=== PATIENT | female | born 2000 | race Caucasian/White ===

== ENCOUNTER → 2021-01-13 | Outpatient (REF) | LOC: M EMP 13:02 | PROVIDERS: ATTEND Family Medicine | DX: Z11.52 Encounter for screening for COVID-19 (principal) ==

== ENCOUNTER → 2021-01-17 | Outpatient (REF) | LOC: M LABSMTC 11:31 | PROVIDERS: ATTEND Pediatrics | DX: Z11.52 Encounter for screening for COVID-19 (principal) ==

== ENCOUNTER 2021-02-06 09:18 | Inpatient (IN) | payer BC ==
[~2021-02-06] VITALS: Ht 167.6 cm; Wt 45.5 kg
--- OUTSIDE RECORDS SUMMARY | 2021-02-06 09:25 | CCD ---
Author Author [facility] Address Unknown Phone Unavailable Care Team Providers Care Lion Trainer Name Role Phone VENEGAS, RUBENS ROSALIND RPA-C Unavailable Unavailable VENEGAS, RUBENS ROSALIND RPA-C Unavailable Unavailable VENEGAS, RUBENS ROSALIND RPA-C Unavailable Unavailable VENEGAS, RUBENS ROSALIND RPA-C Unavailable Unavailable VENEGAS, RUBENS ROSALIND RPA-C Unavailable Unavailable VENEGAS, RUBENS ROSALIND RPA-C Unavailable Unavailable VENEGAS, RUBENS ROSALIND RPA-C Unavailable Unavailable VENEGAS, RUBENS ROSALIND RPA-C Unavailable Unavailable VENEGAS, RUBENS ROSALIND RPA-C Unavailable Unavailable VENEGAS, RUBENS ROSALIND RPA-C Unavailable Unavailable VENEGAS, RUBENS ROSALIND RPA-C Unavailable Unavailable VENEGAS, RUBENS ROSALIND RPA-C Unavailable Unavailable VENEGAS, RUBENS ROSALIND RPA-C Unavailable Unavailable VENEGAS, RUBENS ROSALIND RPA-C Unavailable Unavailable VENEGAS, RUBENS ROSALIND RPA-C Unavailable Unavailable VENEGAS, RUBENS ROSALIND RPA-C Unavailable Unavailable VENEGAS, RUBENS ROSALIND RPA-C Unavailable Unavailable VENEGAS, RUBENS ROSALIND RPA-C Unavailable Unavailable VENEGAS, RUBENS ROSALIND RPA-C Unavailable Unavailable VENEGAS, RUBENS ROSALIND RPA-C Unavailable Unavailable VENEGAS, RUBENS ROSALIND RPA-C Unavailable Unavailable VENEGAS, RUBENS ROSALIND RPA-C Unavailable Unavailable VENEGAS, URBENS ROSALIND RPA-C Unavailable Unavailable VENEGAS, RUBENS ROSALIND RPA-C Unavailable Unavailable VENEGAS, RUBENS ROSALIND RPA-C Unavailable Unavailable VENEGAS, RUBENS ROSALIND RPA-C Unavailable Unavailable VENEGAS, RUBENS ROSALIND RPA-C Unavailable Unavailable VENEGAS, RUBENS ROSALIND RPA-C Unavailable Unavailable VENEGAS, RUBENS ROSALIND RPA-C Unavailable Unavailable VENEGAS, RUBENS ROSALIND RPA-C Unavailable Unavailable VENEGAS, RUBENS ROSALIND RPA-C Unavailable Unavailable VENEGAS, RUBENS ROSALIND RPA-C Unavailable Unavailable VENEGAS, RUBENS ROSALIND RPA-C Unavailable Unavailable VENEGAS, RUBENS ROSALIND RPA-C Unavailable Unavailable VENEGAS, RUBENS ROSALIND RPA-C Unavailable Unavailable VENEGAS, RUBENS ROSALIND RPA-C Unavailable Unavailable VENEGAS, RUBENS ROSALIND RPA-C Unavailable Unavailable VENEGAS, RUBENS ROSALIND RPA-C Unavailable Unavailable VENEGAS, RUBENS ROSALIND RPA-C Unavailable Unavailable VENEGAS, RUBENS ROSALIND RPA-C Unavailable Unavailable VENEGAS, RUBENS ROSALIND RPA-C Unavailable Unavailable VENEGAS, RUBENS ROSALIND RPA-C Unavailable Unavailable VENEGAS, RUBENS ROSALIND RPA-C Unavailable Unavailable PICKERAL JR, J TRICIA PA-C Unavailable Unavailable PICKERAL JR, J TRICIA PA-C Unavailable Unavailable PICKERAL JR, J TRICIA PA-C Unavailable Unavailable PICKERAL JR, J TRICIA PA-C Unavailable Unavailable PICKERAL JR, J TRICIA PA-C Unavailable Unavailable PICKERAL JR, J TRICIA PA-C Unavailable Unavailable PICKERAL JR, J TRICIA PA-C Unavailable Unavailable PICKERAL JR, J TRICIA PA-C Unavailable Unavailable PICKERAL JR, J TRICIA PA-C Unavailable Unavailable PICKERAL JR, J TRICIA PA-C Unavailable Unavailable PICKERAL JR, J TRICIA PA-C Unavailable Unavailable PICKERAL JR, J TRICIA PA-C Unavailable Unavailable PICKERAL JR, J TRICIA PA-C Unavailable Unavailable PICKERAL JR, J TRICIA PA-C Unavailable Unavailable PICKERAL JR, J TRICIA PA-C Unavailable Unavailable PICKERAL JR, J TRICIA PA-C Unavailable Unavailable PICKERAL JR, J TRICIA PA-C Unavailable Unavailable PICKERAL JR, J TRICIA PA-C Unavailable Unavailable PICKERAL JR, J TRICIA PA-C Unavailable Unavailable PICKERAL JR, J TRICIA PA-C Unavailable Unavailable PICKERAL JR, J TRICIA PA-C Unavailable Unavailable PICKERAL JR, J TRICIA PA-C Unavailable Unavailable PICKERAL JR, J TRICIA PA-C Unavailable Unavailable PICKERAL JR, J TRICIA PA-C Unavailable Unavailable PICKERAL JR, J TRICIA PA-C Unavailable Unavailable PICKERAL JR, J TRICIA PA-C Unavailable Unavailable PICKERAL Tarik MARTEL TRICIA PA-C Unavailable Unavailable CARLITO, J Margaret ANP Unavailable Unavailable CARLITO, J Margaret ANP Unavailable Unavailable CARLITO, J Margaret ANP Unavailable Unavailable CARLITO, J Margaret ANP Unavailable Unavailable CARLITO, J Margaret ANP Unavailable Unavailable CARLITO, J Margaret ANP Unavailable Unavailable CARLITO, J Margaret ANP Unavailable Unavailable CARLITO, J Margaret ANP Unavailable Unavailable CARLITO, J Margaret ANP Unavailable Unavailable CARLITO, J Margaret ANP Unavailable Unavailable CARLITO, J Margaret ANP Unavailable Unavailable CARLITO, J Margaret ANP Unavailable Unavailable CARLITO, J Margaret ANP Unavailable Unavailable CARLITO, J Margaret ANP Unavailable Unavailable CARLITO, J Margaret ANP Unavailable Unavailable CARLITO, J Margaret ANP Unavailable Unavailable CARLITO, J Margaret ANP Unavailable Unavailable CARLITO, J Margaret ANP Unavailable Unavailable CARLITO, J Margaret ANP Unavailable Unavailable CARLITO, J Margaret ANP Unavailable Unavailable CARLITO, J Margaret ANP Unavailable Unavailable CARLITO, J Margaret ANP Unavailable Unavailable CARLITO, J Margaret ANP Unavailable Unavailable CARLITO, J Margaret ANP Unavailable Unavailable CARLITO, J Margaret ANP Unavailable Unavailable CARLITO, J Margaret ANP Unavailable Unavailable CARLITO, J Margaret ANP Unavailable Unavailable CARLITO, J Margaret ANP Unavailable Unavailable CARLITO, J Margaret ANP Unavailable Unavailable CARLITO, J Margaret ANP Unavailable Unavailable CARLITO, J Margaret ANP Unavailable Unavailable CARLITO, J Margaret ANP Unavailable Unavailable CARLITO, J Margaret ANP Unavailable Unavailable CARLITO, J Margaret ANP Unavailable Unavailable CARLITO, J Margaret ANP Unavailable Unavailable CARLITO, J Margaret ANP Unavailable Unavailable CARLITO, J Margaret ANP Unavailable Unavailable CARLITO, J Margaret ANP Unavailable Unavailable CARLITO, J Margaret ANP Unavailable Unavailable CARLITO, J Margaret ANP Unavailable Unavailable CARLITO, J Margaret ANP Unavailable Unavailable CARLITO, J Margaret ANP Unavailable Unavailable CARLITO, J Margaret ANP Unavailable Unavailable CARLITO, J Margaret ANP Unavailable Unavailable CARLITO, J Margaret ANP Unavailable Unavailable CARLITO, J Margaret ANP Unavailable Unavailable CARLITO, J Margaret ANP Unavailable Unavailable CARLITO, J Maragret ANP Unavailable Unavailable CARLITO, J Margaret ANP Unavailable Unavailable CARLITO, J Margaret ANP Unavailable Unavailable CARLITO, J Margaret ANP Unavailable Unavailable CARLITO, J Margaret ANP Unavailable Unavailable CARLITO, J Margaret ANP Unavailable Unavailable CARLITO, J Margaret ANP Unavailable Unavailable CARLITO, J Margaret ANP Unavailable Unavailable CARLITO, J Margaret ANP Unavailable Unavailable CARLITO, J Margaret ANP Unavailable Unavailable CARLITO, J Margaret ANP Unavailable Unavailable CARLITO, J Margaret ANP Unavailable Unavailable CARLITO, J Margaret ANP Unavailable Unavailable CARLITO, J Margaret ANP Unavailable Unavailable CARLITO, J Margaret ANP Unavailable Unavailable CARLITO, J Margaret ANP Unavailable Unavailable CARLITO, J Margaret ANP Unavailable Unavailable Re-disclosure Warning The records that you are about to access may contain information from federally-assisted alcohol or drug abuse programs. If such information is present, then the following federally mandated warning applies: This information has been disclosed to you from records protected by federal confidentiality rules (42 CFR part 2). The federal rules prohibit you from making any further disclosure of this information unless further disclosure is expressly permitted by the written consent of the person to whom it pertains or as otherwise permitted by 42 CFR part 2. A general authorization for the release of medical or other information is NOT sufficient for this purpose. The Federal rules restrict any use of the information to criminally investigate or prosecute any alcohol or drug abuse patient.The records that you are about to access may contain highly sensitive health information, the redisclosure of which is protected by Article 27-F of the [facility] Public Health law. If you continue you may have access to information: Regarding HIV / AIDS; Provided by facilities licensed or operated by the [facility] Office of Mental Health; or Provided by the [facility] Office for People With Developmental Disabilities. If such information is present, then the following [facility] mandated warning applies: This information has been disclosed to you from confidential records which are protected by state law. State law prohibits you from making any further disclosure of this information without the specific written consent of the person to whom it pertains, or as otherwise permitted by law. Any unauthorized further disclosure in violation of state law may result in a fine or half-way sentence or both. A general authorization for the release of medical or other information is NOT sufficient authorization for further disc losure. Family History Family Member Name Family Member Gender Family Member Status Date o f Status Description Data Source(s) Unknown Unknown Problem [facility] ([facility]) father Unknown Unknown Problem MEDENT ([employer]PER[employer]) Unknown Unknown Problem [facility] ([facility]) Unknown Male Problem [facility] ([facility]) Encounters Encounter Providers Location Date Indications Data Source(s ) PRECIOUS [place]: [address], [place] [address], Ph. Attender: ROSALIND LANG [facility] Medical 01/13/2021 12:00:00 AM EDT [facility] ([facility]) Outpatient Attender: Margaret Odom 03/2020 07:30:00 AM EST MEDENT ([facility] ) Outpatient Attender: TRICIA Odom 1 04/15/2019 10:20:00 AM EST MED[facility] ([facility] ) Immunizations Vaccine Date Status Description Data Source(s) influenza, intradermal, quadrivalent, preservative dae e 01/06/2021 12:00:00 AM EDT completed 01/06/2021 [facility] ([facility]) COVID-19, mRNA, LNP-S, PF, 100 mcg/0.5 mL dose 09/02/2020 12 :00:00 AM EDT completed 09/02/2020 [facility] ([facility]) COVID-19 VACCINE Moderna 09/02/2020 12:00:00 AM EDT completed [facility] Vaccine Series Complete: YESThis Data wa s Submitted to [facility] [employer]. COVID-19, mRNA, LNP-S, PF, 100 mcg/0.5 mL dose 08/05/2020 12 :00:00 AM EDT completed 08/05/2020 [facility] ([facility]) COVID-19 VACCINE Moderna 08/05/2020 12:00:00 AM EDT completed [facility] Vaccine Series Complete: NOThis Data was Submitted to [facility] [employer]. Medications Medication Brand Name Start Date Product Form Dose Route Admi nistrative Instructions Pharmacy Instructions Status Indications Reaction Description Data Source(s) 24 HR Bupropion Hydrochloride 150 MG Extended Release Oral Tablet [Wellbutrin] Wellbutrin XL 02/14/2020 12:00:00 AM EST ORAL active MEDENT ([facility]) Escitalopram 5 MG Oral Tablet ESCITALOPRAM OXALATE 01/05/2020 12 :00:00 AM EDT tablet 30 TAKE ONE TABLET BY MOUTH EVERY D AY TAKE ONE TABLET BY MOUTH EVERY DAY SOLD: 01/07/2020 David Osbaldo s Escitalopram 5 MG Oral Tablet escitalopr am 5 mg tablet TAKE 1 TABLET BY MOUTH EVERY DAY escitalopram 5 mg tablet TAKE 1 TABLET BY MOUTH EVERY DAY completed escitalopram 5 MG Oral Tablet [facility] ([facility]) 24 HR Bupropion Hydrochloride 150 MG Ext ended Release Oral Tablet bupropion HCl XL 150 mg 24 hr tablet, extended release TAKE 1 TABLET BY MOUTH EVERY DAY bupropion HCl XL 150 mg 24 hr tablet, extended release TAKE 1 TABLET BY MOUTH EVERY DAY completed 24 H R bupropion hydrochloride 150 MG Extended Release Oral Tablet ARTEMIO ([facility]) Insurance Providers Payer name Policy type / Coverage type Policy ID Covered constitution party ID Covered constitution party's relationship to aleman Policy Aleman Plan Information BC/BS [facility] Health Maintenance Organization ([facility]) [id number] Family Dependent [id number] BC/BS [facility] Health Maintenance Organization (O) [facility] [id number] Family Dependent [facility] Medicaid Medicaid [id number] Family Dependent [id number] Medicaid Medicaid [id number] Family Dependent [id number] Medicaid Medicaid [id number] Family Dependent [id number] Medicaid Medicaid [facility] Medicaid [id number] Family Dependent [facility] Medicaid Medicaid Medicaid [id number] Family Dependent [id number] Medicaid Medicaid [id number] Family Dependent [id number] Medicaid Medicaid [id number] Family Dependent [id number] Medicaid Medicaid [id number] [id number] Family Dependent [id number] [facility] [id number] Family Dependent [id number] [facility] [id number] Family Dependent [id number] [facility] [id number] Family Dependent [facility] [id number] Family Dependent [id number] [facility] [id number] Family Dependent [id number] [facility] [id number] Family Dependent [id number] [facility] [id number] Family Dependent [id number] [facility] [id number] Family Dependent [id number] [facility] Health Maintenance Organization ([facility]) [id number] Family Dependent [id number] [facility] Health Maintenance Organization (HMO) [facility] [id number] Family Dependent [employer] Hmo Blue Child [facility] Health Maintenance Organization (HMO) Z [id number] Family Dependent [id number] Hmo Blue Child [facility] Plus Health Maintenance Organization (HMO) [id number] Family Dependent Hmo Blue Child [facility] Health Maintenance Organization (HMO) V [id number] Family Dependent [id number] Hmo Blue Child [facility] Health Maintenance Organization (HMO) V [id number] Family Dependent [id number] Hmo Blue Child [facility] Health Maintenance Organization (HMO) V [id number] Family Dependent [id number] Hmo Blue Child [facility] Plus Health Maintenance Organization (HMO) V [id number] Family Dependent [id number] Hmo Blue Child [facility] Plus Health Maintenance Organization (HMO) V [id number] Family Dependent [id number] Hmo Blue Child [facility] Plus Health Maintenance Organization (HMO) V [id number] Family Dependent [id number] Hmo Blue Child [facility]TH Plus Health Maintenance Organization (HMO) V [id number] Family Dependent [id number] Hmo Blue Child [facility]TH Plus Health Maintenance Organization (HMO) H mo Blue CHP [id number] Family Dependent o Blue CHP Child HLTH Plus Exchange Health Maintenance Organization (HMO) V [id number] Child HLTH Plus [employer] Health Maintenance Organization (HMO) V [id number] Child HLTH Plus [employer] Health Maintenance Organization (HMO) V [id number] BS Cassandra [employer] [id number] Family Dependent [id number] D [facility] [address] [employer] [place] Commercial [id number] Family Dependent [id number] BCBS/Blue Card Commercial [id number] Family Dependent [id number] [employer] BCBS B [id number] S VYB HMO BLUE [id number] SP [id number] SELF PAY ONLY [id number] SP [id number] BCBS [place] PPO 302/307 [id number] [id number] BCBS/Blue Card Commercial [id number] Family Dependent [id number] [facility] [id number] Family Dependent [id number] Problems, Conditions, and Diagnoses Code Display Name Description Problem Type Effective Dates Data Source(s) [id number] History of depression History of Depression Problem 01/13/2021 12:00:00 AM EDT [facility] ([facility]) [id number] Anxiety Anxiety Problem 01/13/2021 12:00:00 AM ED T [facility] ([facility]) Surgeries/Procedures No Information Results ID Date Data Source [id number] 01/17/2021 11:00:00 AM EDT [facility] Name Value Range Interpretation Code Description Data Sosa rce(s) Supporting Document(s) SARS coronavirus 2 RNA [Presence] in Res piratory specimen by NADEEM with probe detection NEGATIVE [facility] This lab was ordered by [facility] a nd reported by [facility]. ID Date Data Source [id number] 01/13/2021 01:03:00 PM EDT [facility] Name Value Range Interpretation Code Description Data Sosa rce(s) Supporting Document(s) SARS coronavirus 2 RNA [Presence] in Res piratory specimen by NADEEM with probe detection NEGATIVE [facility] This lab was ordered by [facility] a nd reported by [facility]. ID Date Data Source [id number] 01/13/2021 12:49:00 PM EDT [facility] ([facility]) Name Value Range Interpretation Code Description Data Sosa rce(s) Supporting Document(s) sars-cov-2 negative negative Sars-cov-2 [facility]) ID Date Data Source [id number] 01/13/2021 12:48:00 PM EDT [facility] [place] [facility] ([facility]) Name Value Range Interpretation Code Description Data Sosa rce(s) Supporting Document(s) Strep negative Strep ARTEMIO ([facility]) ID Date Data Source [id number] 01/13/2021 12:38:00 PM EDT [facility]IO ([facility]) Name Value Range Interpretation Code Description Data Sosa rce(s) Supporting Document(s) Bacteria identified in Throat by Culture see note Culture, Throat [facility]IO ([facility]) ID Date Data Source [id number] 01/13/2021 11:44:00 AM EDT [facility] Name Value Range Interpretation Code Description Data Sosa rce(s) Supporting Document(s) SARS coronavirus 2 RdRp gene [Presence] in Respiratory specimen by NADEEM with probe detection Not detected [facility] This lab was ordered by [facility] and reported by [facility]. ID Date Data Source [id number] 07/27/2020 10:00:00 AM EDT [facility] Name Value Range Interpretation Code Description Data Sosa rce(s) Supporting Document(s) SARS-CoV-2 (COVID-19) RNA [Presence] in Respiratory specimen by NADEEM with probe detection Not Detected [facility] This lab was ordered by [facility] and reported by [employer] [facility] ID Date Data Source [id number] 05/12/2020 12:00:00 PM EST [facility] Name Value Range Interpretation Code Description Data Sosa rce(s) Supporting Document(s) SARS coronavirus 2 RNA Not Detected [facility] This lab was ordered by [facility] and reported by [facility]. ID Date Data Source [id number] 02/28/2020 12:00:00 AM EST [facility] Name Value Range Interpretation Code Description Data Sosa rce(s) Supporting Document(s) 2019-nCoV RNA XXX NADEEM+probe-Imp [facility] This lab was ordered by [facility] and reported by [employer] [facility] Procedure Social History No Information Vital Signs ID Date Data Source UNK Name Value Range Interpretation Code Description Data Source(s) Body height 67 [in_i] 67 [in_i] ARTEMIO ([facility]) Diastolic blood pressure 82 mm[Hg] 82 mm[Hg] [facility] ([facility]) Body weight 1648 [oz_av] 1648 [oz_av] [facility]IO ([facility]) Body mass index (BMI) [Ratio] 16.1 kg/m2 16.1 k g/m2 [facility]IO ([facility]) Systolic blood pressure 123 mm[Hg] 123 mm[Hg] A THENA ([facility]) Heart rate 74 /min 74 /min MEDENT ([facility]) Body height 66.0 [in_i] 66.0 [in_i] MEDENT ([facility]) 5'6" Body weight 116.00 [lb_av] 116.00 [lb_av] MEDEN T ([facility]) Oxygen saturation in Arterial blood by Pulse oximetry 99 % 99 % MEDENT ([facility]) Body mass index (BMI) [Ratio] 18.7 kg/m2 18.7 k g/m2 MEDENT ([facility]) Systolic blood pressure 100 mm[Hg] 100 mm[Hg] M EDENT ([facility]) Diastolic blood pressure 62 mm[Hg] 62 mm[Hg] MEDENT ([facility]) Systolic blood pressure 100 mm[Hg] 100 mm[Hg] M EDENT ([facility]) Body weight 115.00 [lb_av] 115.00 [lb_av] MEDEN T ([facility]) Body mass index (BMI) [Ratio] 18.6 kg/m2 18.6 k g/m2 MEDENT ([facility]) Diastolic blood pressure 58 mm[Hg] 58 mm[Hg] MEDENT ([facility]) Body height 66.0 [in_i] 66.0 [in_i] MEDENT ([facility]) 5'6" Patient Treatment Plan of Care Planned Activity Planned Date Details Description Data Source (s) Escitalopram 5 MG Oral Tablet [facility] ([facility]) 24 HR Bupropion Hydrochloride 150 MG Extended Release Oral Tablet [facility] ([facility])
--- OUTSIDE RECORDS SUMMARY | 2021-02-06 09:25 | CCD ---
Author Organization Unknown Address [address] [place] [address] Phone [phone] Care Team Providers Care Saw Edge Fuser Circular Name Role Phone Beck Gabriel Unavailable Unavailable Allergies Code Code System Name Reaction Severity Status Onset Penicillin Active 06/28/2012 328250 RxNorm Lexapro Other Active Wellbutrin Other Active Medications Name Status Start Date Stop Date bupropion HCl XL 150 mg 24 hr tablet, ex tended release TAKE 1 TABLET BY MOUTH EVERY DAY Completed 2020 cefdinir 300 mg capsule TAKE 1 CAPSULE BY MOUTH EVERY 12 HOURS FOR 7 DAYS Active Not available escitalopram 5 mg tablet TAKE 1 TABLET BY MOUTH EVERY DAY Completed 2020 fluoxetine 20 mg capsule TAKE 1 CAPSULE BY MOUTH EVERY DAY Active Not a vailable hydroxyzine HCl 10 mg tablet TAKE 1 TABLET BY MOUTH THREE TIMES DAILY FOR 10 DAYS NEEDED Active Not available Notes: has IUD Problems Name Status Onset Date Source Anxiety Active 01/13/2021 History of Depression Active 01/13/2021 Procedures None recorded. Results Lab Results Date Name Specimen Result Interpretation Description Value Range Status Address 01/13/2021 Culture, Throat Throat Culture, Throat see not e Final [facility]: [address] 01/13/2021 SARS CoV 2 RdRp Gene, QL Probe, Respirat ory Specimen Nose (nasal passage) Normal Sars-cov-2 negative negative Final [facility] ical: [address], [place] 01/13/2021 Rapid Strep Group a, Throat Throat Strep negat kimber [facility] Medical: [address], [place] Past Encounters 01/13/2021 Mixed Anxiety and Depressive Disorder; Sore Throat Symptom Beck Gabriel RPA-C: [address], [place] [address], Ph. Social History Tobacco Smoking Status Never Smoker Vaccine List Vaccine Type COVID-19, mRNA, LNP-S, PF, 100 mcg/0.5 m L dose 08/05/2020 09/02/2020 influenza, intradermal, quadrivalent, pr eservative free 01/06/2021 Plan of Care Reminders Provider Appointments None recorded. Lab None recorded. Referral None recorded. Procedures None recorded. Surgeries None recorded. Imaging None recorded. Vitals Height Weight BMI Blood Pressure 67 in 102 lbs 16 oz 16.1 kg/m2 123/82 mm[Hg]
[2021-02-06 10:34] LABS: HEMATOCRIT 46.6 % (36.0-47.0); HEMOGLOBIN 15.3 g/dl (12.0-15.5); MEAN CORPUSCULAR HEMOGLOBIN 30.1 pg (27.0-33.0); MEAN CORPUSCULAR HGB CONC 32.8 g/dl (32.0-36.5); MEAN CORPUSCULAR VOLUME 91.6 fl (80.0-96.0); PLATELET COUNT, AUTOMATED 191 10^3/uL (150-450); RED BLOOD COUNT 5.09 10^6/uL (4.00-5.40); WHITE BLOOD COUNT 7.2 10^3/uL (4.0-10.0)
[2021-02-06] MEDS ORDERED: FLUO20CA22 PO (10:34)
[2021-02-06] MEDS ORDERED: HYDR-643 PO (10:34)
[2021-02-06] MEDS ORDERED: FLON1SPR NARES (10:35)
[2021-02-06 10:44] LABS: HCG, SERUM QUALITATIVE NEGATIVE (NEGATIVE)
[2021-02-06 10:56] LABS: AMPHETAMINES LEVEL URINE NEGATIVE (NEGATIVE); BARBITURATES URINE NEGATIVE (NEGATIVE); BENZODIAZEPINES URINE NEGATIVE (NEGATIVE); CANNABINOIDS URINE POSITIVE (NEGATIVE); COCAINE METABOLITE URINE NEGATIVE (NEGATIVE); METHADONE URINE NEGATIVE (NEGATIVE); OPIATES URINE NEGATIVE (NEGATIVE); PHENCYCLIDINE URINE NEGATIVE (NEGATIVE)
[2021-02-06 10:59] LABS: ALT/SGPT 19 U/L (12-78); BLOOD UREA NITROGEN 5 MG/DL (7-18); CALCIUM LEVEL 9.2 MG/DL (8.5-10.1); CARBON DIOXIDE LEVEL 29 MEQ/L (21-32); CHLORIDE LEVEL 102 MEQ/L (98-107); CREATININE FOR GFR 0.56 MG/DL (0.55-1.30); GLOMERULAR FILTRATION RATE > 60.0 (>60); GLUCOSE, FASTING 88 MG/DL (70-100); POTASSIUM SERUM 4.4 MEQ/L (3.5-5.1); SODIUM LEVEL 137 MEQ/L (136-145)
[2021-02-06 11:00] LABS: ACETAMINOPHEN LEVEL < 2.0 UG/ML (10.0-30.0); ALBUMIN 4.4 GM/DL (3.2-5.2); BILIRUBIN,DIRECT 0.2 MG/DL (0.0-0.2); BILIRUBIN,TOTAL 0.4 MG/DL (0.2-1.0); ETHYL ALCOHOL (ETHANOL) < 0.003 % (0.000-0.010); SALICYLATE LEVEL 1.9 MG/DL (5.0-30.0); THYROID STIMULATING HORMONE 0.296 uIU/ML (0.358-3.740); TOTAL PROTEIN 8.2 GM/DL (6.4-8.2)
--- OUTSIDE RECORDS SUMMARY | 2021-02-06 12:09 | CCD ---
Author Author [facility] Address Unknown Phone Unavailable Care Team Providers Care Senior Staff Psychologist Name Role Phone VENEGAS, RUBENS ROSALIND RPA-C [...] J Margaret ANP Unavailable Unavailable CARLITO, J Margarte ANP Unavailable Unavailable CARLITO, J Margaret ANP [...] is protected by Article 27-F of the [facility] Public Health law. If you continue you may have access to information: Regarding HIV / AIDS; Provided by facilities licensed or operated by the [facility] Office of Mental Health; or Provided by the [facility] Office for People With Developmental Disabilities. If such information is present, then the following [facility] mandated warning applies: This information has been [...] law may result in a fine or senior living sentence or both. A general authorization for the release of medical or other information is NOT sufficient authorization for further disc losure. Family History Family Member Name Family Member Gender Family Member Status Date o f Status Description Data Source(s) Unknown Unknown Problem MEDENT ([facility]) father Unknown Unknown Problem MEDENT ([employer]) Unknown Unknown Problem MEDENT ([facility]) Unknown Male Problem [facility] ([facility]) Encounters Encounter Providers Location Date Indications Data Source(s ) PRECIOUS [place]: [address], [place] [address], Ph. Attender: ROSALIND LANG [facility] Medical 01/13/2021 12:00:00 AM EDT [facility] ([facility]) Outpatient Attender: Margaret Odom 03/2020 07:30:00 AM EST MEDENT ([facility] ) Outpatient Attender: TRICIA Odom 1 04/15/2019 10:20:00 AM EST MED[facility] ([facility] ) Immunizations Vaccine Date Status Description Data Source(s) influenza, intradermal, quadrivalent, preservative dae e 01/06/2021 12:00:00 AM EDT completed 01/06/2021 [facility] ([facility]) COVID-19, mRNA, LNP-S, PF, 100 mcg/0.5 mL dose 09/02/2020 12 :00:00 AM EDT completed 09/02/2020 [facility] ([facility]) COVID-19 VACCINE Moderna 09/02/2020 12:00:00 AM EDT completed [facility] Vaccine Series Complete: YESThis Data wa s Submitted to [facility] Via [facility]. COVID-19, mRNA, LNP-S, PF, 100 mcg/0.5 mL dose 08/05/2020 12 :00:00 AM EDT completed 08/05/2020 [facility] ([facility]) COVID-19 VACCINE Moderna 08/05/2020 12:00:00 AM EDT completed [facility] Vaccine Series Complete: NOThis Data was Submitted to [facility]. Medications Medication Brand Name Start Date Product Form Dose Route Admi nistrative Instructions Pharmacy Instructions Status Indications Reaction Description Data Source(s) 24 HR Bupropion Hydrochloride 150 MG Extended Release Oral Tablet [Wellbutrin] Wellbutrin XL 02/14/2020 12:00:00 AM EST ORAL active MEDENT ([facility]) Escitalopram 5 MG Oral Tablet ESCITALOPRAM [...] completed escitalopram 5 MG Oral Tablet AT [facility] ([facility]) 24 HR Bupropion Hydrochloride 150 MG Ext ended Release Oral Tablet bupropion HCl XL 150 mg 24 hr tablet, extended release TAKE 1 TABLET BY MOUTH EVERY DAY bupropion HCl XL 150 mg 24 hr tablet, extended release TAKE 1 TABLET BY MOUTH EVERY DAY completed 24 H R bupropion hydrochloride 150 MG Extended Release Oral Tablet [facility] ([facility]) Insurance Providers Payer name Policy type / Coverage type Policy ID Covered republican ID Covered republican's relationship to aleman Policy Aleman Plan Information BC/BS [facility] Health Maintenance Organization ([facility] [facility]) [id number] Family Dependent [id number] BC/BS [facility] Health Maintenance Organization (O) [facility] Blue [id number] Family Dependent [facility] Medicaid Medicaid [id number] Family Dependent [id number] Medicaid Medicaid [id number] Family Dependent [id number] Medicaid Medicaid [id number] Family Dependent [id number] Medicaid Medicaid [facility] Medicaid [id number] [facility] Medicaid Medicaid Medicaid [id number] Family Dependent [id number] Medicaid Medicaid [id number] [id number] Family Dependent [id number] Medicaid Medicaid [id number] Family Dependent [id number] Medicaid Medicaid [id number] [id number] Family Dependent [id number] [facility] [id number] Family Dependent [id number] [facility] [id number] Family Dependent [id number] [facility] [id number] Family Dependent [facility] [id number] Family Dependent [id number] [facility] [id number] Family Dependent [id number] [facility] [id number] Family Dependent [id number] [facility] [id number] Family Dependent [id number] [facility] [id number] Family Dependent [id number] [facility] Health Maintenance Organization ([facility] [facility]) [id number] Family Dependent [id number] [facility] Health Maintenance Organization (HMO) [facility] [id number] Family Dependent [employer] Hmo Blue Child HLTH Plus Health Maintenance Organization (HMO) [id number] Family Dependent [id number] Hmo Blue Child HLTH Plus Health Maintenance Organization (HMO) [id number] Family Dependent Hmo Blue Child HLTH Plus Health Maintenance Organization (HMO) V [id number] Family Dependent [id number] Hmo Blue Child HLTH Plus Health Maintenance Organization (HMO) V [id number] Family Dependent [id number] Hmo Blue Child HLTH Plus Health Maintenance Organization (HMO) V [id number] Family Dependent [id number] Hmo Blue Child HLTH Plus Health Maintenance Organization (HMO) V [id number] Family Dependent [id number] Hmo Blue Child HLTH Plus Health Maintenance Organization (HMO) V [id number] Family Dependent [id number] Hmo Blue Child HLTH Plus Health Maintenance Organization (HMO) V [id number] Family Dependent [id number] Hmo Blue Child HLTH Plus Health Maintenance Organization (HMO) V [id number] Family Dependent [id number] Hmo Blue Child HLTH Plus Health Maintenance Organization (HMO) H mo Blue CHP [id number] Family Dependent o Blue CHP Child HLTH Plus Exchange Health Maintenance Organization (HMO) V [id number] [id number] Child HLTH Plus [employer] Health Maintenance Organization (HMO) V [id number] Child HLTH Plus Exchange Health Maintenance Organization (HMO) V [id number] BS Cassandra [employer]/MX Commercial [id number] Family Dependent [id number] D [facility] [address] [facility] [place] Commercial [id number] Family Dependent [id number] BCBS/Blue Card Commercial [id number] Family Dependent [id number] EXCELLUS BCBS B [id number] S VYB HMO BLUE [id number] SP [id number] SELF PAY ONLY [id number] SP [id number] BCBS [place]AT[place] PPO 302/307 [id number] [id number] BCBS/Blue Card Commercial [id number] Family Dependent [id number] [facility] [id number] Family Dependent [id number] Problems, Conditions, and Diagnoses Code Display Name Description Problem Type Effective Dates Data Source(s) [id number] History of depression History of Depression Problem 01/13/2021 12:00:00 AM EDT [facility] ([facility]) [id number] Anxiety Anxiety Problem 01/13/2021 12:00:00 AM ED T [facility] ([facility]) Surgeries/Procedures No Information Results ID Date Data Source [id number] 01/17/2021 11:00:00 AM EDT [facility] Name Value Range Interpretation Code Description Data Sosa rce(s) Supporting Document(s) SARS coronavirus 2 RNA [Presence] in Res piratory specimen by NADEEM with probe detection NEGATIVE [facility] This lab was ordered by [facility] a nd reported by [facility]. ID Date Data Source [id number] 01/13/2021 01:03:00 PM EDT [facility] Name Value Range Interpretation Code Description Data Sosa rce(s) Supporting Document(s) SARS coronavirus 2 RNA [Presence] in Res piratory specimen by NADEEM with probe detection NEGATIVE [facility] This lab was ordered by [facility] a nd reported by [facility]. ID Date Data Source [id number] 01/13/2021 12:49:00 PM EDT [facility] ([facility]) Name Value Range Interpretation Code Description Data Sosa rce(s) Supporting Document(s) sars-cov-2 negative negative Sars-cov-2 [facility]) ID Date Data Source [id number] 01/13/2021 12:48:00 PM EDT [facility] ([facility]) Name Value Range Interpretation Code Description Data Sosa rce(s) Supporting Document(s) Strep negative Strep [facility]EMIO ([facility]) ID Date Data Source [id number] 01/13/2021 12:38:00 PM EDT [facility] ([facility]) Name Value Range Interpretation Code Description Data Sosa rce(s) Supporting Document(s) Bacteria identified in Throat by Culture see note Culture, Throat [facility] ([facility]) ID Date Data Source [id number] 01/13/2021 11:44:00 AM EDT [facility] Name Value Range Interpretation Code Description Data Sosa rce(s) Supporting Document(s) SARS coronavirus 2 RdRp gene [Presence] in Respiratory specimen by NADEEM with probe detection Not detected [facility] This lab was ordered by [facility] and reported by [facility]. ID Date Data Source [id number] 07/27/2020 10:00:00 AM EDT [facility] Name Value Range Interpretation Code Description Data Sosa rce(s) Supporting Document(s) SARS-CoV-2 (COVID-19) RNA [Presence] in Respiratory specimen by NADEEM with probe detection Not Detected [facility] This lab was ordered by [facility] and reported by [employer] ID Date Data Source [id number] 05/12/2020 12:00:00 PM EST [facility] Name Value Range Interpretation Code Description Data Sosa rce(s) Supporting Document(s) SARS coronavirus 2 RNA Not Detected [facility] This lab was ordered by [facility] and reported by [facility]. ID Date Data Source [id number] 02/28/2020 12:00:00 AM EST [facility] Name Value Range Interpretation Code Description Data Sosa rce(s) Supporting Document(s) 2019-nCoV RNA XXX NADEEM+probe-Imp [facility] This lab was ordered by [facility] and reported by [employer] Procedure Social History No Information Vital Signs ID Date Data Source UNK Name Value Range Interpretation Code Description Data Source(s) Diastolic blood pressure 82 mm[Hg] 82 mm[Hg] ARTEMIO ([facility]) Body height 67 [in_i] 67 [in_i] [facility] ([facility]) Body mass index (BMI) [Ratio] 16.1 kg/m2 16.1 k g/m2 ART[facility]IO ([facility]) Systolic blood pressure 123 mm[Hg] 123 mm[Hg] Archie THENA ([facility]) Body weight 1648 [oz_av] 1648 [oz_av] ARTEMIO ([facility]) Body height 66.0 [in_i] 66.0 [in_i] MEDENT ([facility]) 5'6" Heart rate 74 /min 74 /min MEDENT ([facility]) Body weight 116.00 [lb_av] 116.00 [lb_av] MEDEN T ([facility]) Oxygen saturation in Arterial blood by Pulse oximetry 99 % 99 % [facility] Body mass index (BMI) [Ratio] 18.7 kg/m2 18.7 k g/m2 MEDENT ([facility]) Systolic blood pressure 100 mm[Hg] 100 mm[Hg] M EDENT ([facility]) Diastolic blood pressure 62 mm[Hg] 62 mm[Hg] MEDENT ([facility]) Systolic blood pressure 100 mm[Hg] 100 mm[Hg] M EDENT ([facility]) Diastolic blood pressure 58 mm[Hg] 58 mm[Hg] MEDENT ([facility]) Body height 66.0 [in_i] 66.0 [in_i] MED[facility] ([facility]) 5'6" Body weight 115.00 [lb_av] 115.00 [lb_av] MEDEN T ([facility]) Body mass index (BMI) [Ratio] 18.6 kg/m2 18.6 k g/m2 MEDENT ([facility]) Patient Treatment Plan of Care Planned Activity Planned Date Details Description Data Source (s) Escitalopram 5 MG Oral Tablet [facility]IO ([facility]) 24 HR Bupropion Hydrochloride 150 MG Extended Release Oral Tablet [facility] ([facility])
[2021-02-06] MEDS ORDERED: MAALOX 30 ML SUSP *UDC PO PRN (13:30)
[2021-02-06] MEDS ORDERED: ACETAMINOPHEN TAB 650MG DOSE (2X325MG) PO PRN (13:30)
[2021-02-06] MEDS ORDERED: MOM 30ML SUSPENSION UDC PO PRN (13:30)
--- OUTSIDE RECORDS SUMMARY | 2021-02-06 13:55 | CCD ---
Author Author [facility] Address Unknown Phone Unavailable Care Team Providers Care General Service Officer Name Role Phone VENEGAS, RUBENS ROSALIND RPA-C [...] is protected by Article 27-F of the [facility] Public Health law. If you continue you may have access to information: Regarding HIV / AIDS; Provided by facilities licensed or operated by the [facility] Office of Mental Health; or Provided by the [facility] Office for People With Developmental Disabilities. If such information is present, then the following [facility] mandated warning applies: This information has [...] father Unknown Unknown Problem [facility] ([facility] [employer]) Unknown Unknown Problem [facility] ([facility]) Unknown Male Problem [facility] ([facility]) Encounters Encounter Providers Location Date Indications Data Source(s ) PRECIOUS [place]: [address], [address], [place] [address], Ph. Attender: ROSALIND LANG [facility] 01/13/2021 12:00:00 AM EDT [place] ([facility]) Outpatient Attender: Margaret Odom 03/2020 07:30:00 AM EST [facility] ([facility] ) Outpatient Attender: TRICIA Odom 1 04/15/2019 10:20:00 AM EST [facility] ([facility] ) Immunizations Vaccine Date Status Description Data Source(s) influenza, intradermal, quadrivalent, preservative ade e 01/06/2021 12:00:00 AM EDT completed 01/06/2021 [place] ([facility]) COVID-19, mRNA, LNP-S, PF, 100 mcg/0.5 mL dose 09/02/2020 12 :00:00 AM EDT completed 09/02/2020 [place] ([facility]) COVID-19 VACCINE Moderna 09/02/2020 12:00:00 AM EDT completed [facility] Vaccine Series Complete: YESThis Data wa s Submitted to [facility] Via [employer]. COVID-19, mRNA, LNP-S, PF, 100 mcg/0.5 mL dose 08/05/2020 12 :00:00 AM EDT completed 08/05/2020 [place] ([facility]) COVID-19 VACCINE Moderna 08/05/2020 12:00:00 AM EDT completed [facility] Vaccine Series Complete: NOThis Data was Submitted to [facility] [employer]. Medications Medication Brand Name Start Date Product Form Dose Route Admi nistrative Instructions Pharmacy Instructions Status Indications Reaction Description Data Source(s) 24 HR Bupropion Hydrochloride 150 MG Extended Release Oral Tablet [Wellbutrin] Wellbutrin XL 02/14/2020 12:00:00 AM EST ORAL active [facility] ([facility]) Escitalopram 5 MG Oral Tablet ESCITALOPRAM [...] completed escitalopram 5 MG Oral Tablet AT [facility] ([facility]) 24 HR Bupropion Hydrochloride 150 MG Ext ended Release Oral Tablet bupropion HCl XL 150 mg 24 hr tablet, extended release TAKE 1 TABLET BY MOUTH EVERY DAY bupropion HCl XL 150 mg 24 hr tablet, extended release TAKE 1 TABLET BY MOUTH EVERY DAY completed 24 H R bupropion hydrochloride 150 MG Extended Release Oral Tablet [facility] ([facility]) Insurance Providers Payer name Policy type / Coverage type Policy ID Covered alliance party ID Covered alliance party's relationship to aleman Policy Aleman Plan Information BC/BS [facility] Health Maintenance Organization ([facility] [id number] Family Dependent [id number] BC/BS [facility] Health Maintenance Organization (O) [facility] Blue [id number] Family Dependent [facility] Medicaid Medicaid [id number] Family Dependent [id number] Medicaid Medicaid [id number] Family Dependent [id number] Medicaid Medicaid [id number] Family Dependent [id number] Medicaid Medicaid [facility] Medicaid [id number] Family Dependent [facility] Medicaid Medicaid Medicaid [id number] Family Dependent [id number] Medicaid Medicaid [id number] Family Dependent [id number] Medicaid Medicaid [id number] Family Dependent [id number] Medicaid Medicaid [id number] [id number] Family Dependent [id number] [facility] [id number] Family Dependent [id number] [facility] [id number] Family Dependent [id number] [facility] Adminstr[facility] medical [facility] [id number] Family Dependent [facility] [id number] Family Dependent [id number] [facility] [id number] Family Dependent [id number] [facility] [id number] Family Dependent [id number] [facility] [id number] Family Dependent [id number] [facility] [id number] Family Dependent [id number] [facility] Care Health Maintenance Organization ([facility] [id number] Family Dependent [id number] [facility] Health Maintenance Organization (HMO) [facility] [id number] Family Dependent [employer] Select [employer] Hmo Blue Child HLTH Plus Health Maintenance Organization (HMO) [id number] Family Dependent [id number] Hmo Blue Child HLTH Plus Health Maintenance Organization (HMO) [id number] Family Dependent Hmo Blue Child HLTH Plus Health Maintenance Organization (HMO) V [id number] Family Dependent [id number] Hmo Blue Child HLTH Plus Health Maintenance Organization (HMO) V [id number] Family Dependent [id number] Hmo Blue Child HLTH Plus Health Maintenance Organization (HMO) V [id number] Family Dependent [id number] Hmo Blue Child HLTH Plus Health Maintenance Organization (HMO) V [id number] Family Dependent [id number] Hmo Blue Child HLTH Plus Health Maintenance Organization (HMO) V [id number] Family Dependent [id number] Hmo Blue Child HLTH Plus Health Maintenance Organization (HMO) V [id number] Family Dependent [id number] Hmo Blue Child HLTH Plus Health Maintenance Organization (HMO) V [id number] Family Dependent [id number] Hmo Blue Child HLTH Plus Health Maintenance Organization (HMO) H mo Blue CHP [id number] Family Dependent o Blue CHP Child HLTH Plus Exchange Health Maintenance Organization (HMO) V [id number] Child HLTH Plus Exchange Health Maintenance Organization (HMO) V [id number] Child HLTH Plus Exchange Health Maintenance Organization (HMO) V [id number] BS Cassandra Trad/MX Commercial [id number] Family Dependent [id number] D [facility] [address] [facility] [place] Commercial [id number] Family Dependent [id number] BCBS/Blue Card Commercial [id number] Family Dependent [id number] [employer]CE[employer] BCBS B [id number] S VYB HMO BLUE [id number] SP [id number] SELF PAY ONLY [id number] SP [id number] BCBS [place]N PPO 302/307 [id number] [id number] BCBS/Blue Card Commercial [id number] Family Dependent [id number] [facility] [id number] Family Dependent [id number] Problems, Conditions, and Diagnoses Code Display Name Description Problem Type Effective Dates Data Source(s) [id number] History of depression History of Depression Problem 01/13/2021 12:00:00 AM EDT [facility] ([facility]) [id number] Anxiety Anxiety Problem 01/13/2021 12:00:00 AM ED T [place] ([facility]) Surgeries/Procedures No Information Results ID Date Data Source [id number] 01/17/2021 11:00:00 AM EDT [facility] Name Value Range Interpretation Code Description Data Sosa rce(s) Supporting Document(s) SARS coronavirus 2 RNA [Presence] in Res piratory specimen by NADEEM with probe detection NEGATIVE [facility] This lab was ordered by [facility] a nd reported by [facility]. ID Date Data Source [id number] 01/13/2021 01:03:00 PM EDT [facility] Name Value Range Interpretation Code Description Data Sosa rce(s) Supporting Document(s) SARS coronavirus 2 RNA [Presence] in Res piratory specimen by NADEEM with probe detection NEGATIVE [facility] This lab was ordered by [facility] a nd reported by [facility]. ID Date Data Source [id number] 01/13/2021 12:49:00 PM EDT [place] ([facility]) Name Value Range Interpretation Code Description Data Sosa rce(s) Supporting Document(s) sars-cov-2 negative negative Sars-cov-2 [facility]) ID Date Data Source [id number] 01/13/2021 12:48:00 PM EDT [place] ([facility]) Name Value Range Interpretation Code Description Data Sosa rce(s) Supporting Document(s) Strep negative Strep [facility] ([facility]) ID Date Data Source [id number] 01/13/2021 12:38:00 PM EDT [facility] ([facility]) Name Value Range Interpretation Code Description Data Sosa rce(s) Supporting Document(s) Bacteria identified in Throat by Culture see note Culture, Throat [facility] ([facility]) ID Date Data Source [id number] 01/13/2021 11:44:00 AM EDT [facility] Name Value Range Interpretation Code Description Data Sosa rce(s) Supporting Document(s) SARS coronavirus 2 RdRp gene [Presence] in Respiratory specimen by NADEEM with probe detection Not detected [facility] This lab was ordered by [facility] and reported by [facility]. ID Date Data Source [id number] 07/27/2020 10:00:00 AM EDT [facility] Name Value Range Interpretation Code Description Data Sosa rce(s) Supporting Document(s) SARS-CoV-2 (COVID-19) RNA [Presence] in Respiratory specimen by NADEEM with probe detection Not Detected [facility] This lab was ordered by [facility] and reported by [employer] ID Date Data Source [id number] 05/12/2020 12:00:00 PM EST [facility] Name Value Range Interpretation Code Description Data Sosa rce(s) Supporting Document(s) SARS coronavirus 2 RNA Not Detected [facility] This lab was ordered by [facility] and reported by [facility]. ID Date Data Source [id number] 02/28/2020 12:00:00 AM EST [facility] Name Value Range Interpretation Code Description Data Sosa rce(s) Supporting Document(s) 2019-nCoV RNA XXX NADEEM+probe-Imp [facility] This lab was ordered by [facility] and reported by [employer] Procedure Social History No Information Vital Signs ID Date Data Source UNK Name Value Range Interpretation Code Description Data Source(s) Body height 67 [in_i] 67 [in_i] [facility] ([facility]) Body mass index (BMI) [Ratio] 16.1 kg/m2 16.1 k g/m2 [facility] ([facility]) Diastolic blood pressure 82 mm[Hg] 82 mm[Hg] [facility] ([facility]) Systolic blood pressure 123 mm[Hg] 123 mm[Hg] A THENA ([facility]) Body weight 1648 [oz_av] 1648 [oz_av] [facility] ([facility]) Heart rate 74 /min 74 /min [facility] ([facility]) Body height 66.0 [in_i] 66.0 [in_i] [facility] ([facility]) 5'6" Body weight 116.00 [lb_av] 116.00 [lb_av] MEDEN T ([facility]) Oxygen saturation in Arterial blood by Pulse oximetry 99 % 99 % [facility] ([facility]) Body mass index (BMI) [Ratio] 18.7 kg/m2 18.7 k g/m2 [facility] ([facility]) Systolic blood pressure 100 mm[Hg] 100 mm[Hg] M EDENT ([facility]) Diastolic blood pressure 62 mm[Hg] 62 mm[Hg] [facility] ([facility]) Systolic blood pressure 100 mm[Hg] 100 mm[Hg] [facility] Diastolic blood pressure 58 mm[Hg] 58 mm[Hg] [facility] ([facility]) Body height 66.0 [in_i] 66.0 [in_i] [facility] ([facility]) 5'6" Body weight 115.00 [lb_av] 115.00 [lb_av] MEDEN T ([facility]) Body mass index (BMI) [Ratio] 18.6 kg/m2 18.6 k g/m2 [facility] ([facility]) Patient Treatment Plan of Care Planned Activity Planned Date Details Description Data Source (s) Escitalopram 5 MG Oral Tablet [facility] ([facility]) 24 HR Bupropion Hydrochloride 150 MG Extended Release Oral Tablet [facility] ([facility])
[2021-02-06] MEDS ORDERED: HOME MED LIST COMPLETE! XX SCH (14:15)
[2021-02-06 15:11] LABS: RSV AMPLIFICATION NEGATIVE (NEGATIVE)
[2021-02-06 16:57] VITALS: BP 131/85
[2021-02-06] MEDS: hydrOXYzine 50 MG TAB PO PRN (17:58)
[2021-02-06] MEDS: traZODone 50 MG TAB PO PRN (19:28)
[2021-02-07] MEDS: hydrOXYzine 50 MG TAB PO PRN (07:41)
[2021-02-07] MEDS ORDERED: FLUoxetine 20 MG CAP PO SCH (09:00)
[2021-02-07 11:15] LABS: FREE T4 1.24 NG/DL (0.76-1.46)
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
[2021-02-07 16:30] VITALS: BP 108/61
--- NOTE | 2021-02-07 19:05 | HPEPDOC ---
General Date of Admission Feb 06, 2021 at 13:27 Date of Service: Feb 07, 2021 Attending Physician: PINO ABDI MD Chief Complaint The patient is a 20-year-old female admitted with a reason for visit of Uspecified Depressive Disorder. Source: Patient, RN/MD Exam Limitations: No limitations History of Present Illness 20 yo W with a history of depression who [facility] depression with suicidal ideation i/s/o relationship stressors. She otherwise has no chronic medical problems, denies any recent physical illness and initial investigations revealed a normal CBC and BMP, borderline low TSH and tox screen was positive for marijuana. Home Medications Scheduled Fluoxetine Hcl (Fluoxetine HCl) 20 Mg Capsule, 20 MG PO DAILY, (Reported) Scheduled PRN Hydroxyzine HCl (Hydroxyzine HCl) 10 Mg Tablet, 10 MG PO TID PRN for ANXIETY/AGITATION, (Reported) Allergies Coded Allergies: Penicillins (Verified Allergy, Intermediate, hives, 02/06/21) Past Medical History Medical History Depression Surgical History None A-FIB/CHADSVASC A-FIB History Current/History of A-Fib/PAF?: No Current PO Anticoag Therapy: No Age/Risk Factor Scoring CHADSVASC: CHADSVASC Response (Comments) Value Age Risk Factor Age < 65 years old 0 Gender Risk Factor Female 1 Hx of CHF No 0 Hx of HTN No 0 Hx of Stroke/TIA/or VTE No 0 Hx of Diabetes No 0 Hx of Vascular Disease No 0 Total 1 Treatment Treatment ordered: NONE Reason Anticoagulant not given: Not indicated/[id number] Review of Systems Constitutional: Denies: Chills, Fever, Night Sweats Eyes: Denies: Pain, Vision change ENT: Denies: Head Aches, Ear Pain, Dysphagia Skin: Denies: Rash, Lesions, Breakdown Pulmonary: Denies: Dyspnea, Cough Cardiovascular: Denies: Chest Pain, Palpitations, Orthopnea, Paroxysmal Noc. Dyspnea, Lt Headedness Gastrointestinal: Denies: Nausea, Vomiting, Abdominal Pain, Diarrhea Genitourinary: Denies: Dysuria, Frequency, Incontinence, Retention Hematologic: Denies: Bruising, Bleeding Excessively Endocrine: Denies: Polydipsia, Polyphagia, Polyuria, Heat Intolerance, Cold Intolerance, Other Endocrine Sx Musculoskeletal: Denies: Neck Pain, Back Pain, Joint Pain, Muscle Pain, Spasms Neurological: Denies: Weakness, Numbness, Change in speech, Confusion Psych: Reports: Depression, Thoughts of Self Harm Physical Examination General Exam: Positive: Alert, No Acute Distress Eye Exam: Positive: PERRLA, Conjunctiva & lids normal, EOMI; Negative: Sclera icteric ENT Exam: Positive: Atraumatic, Mucous membr. moist/pink, Pharynx Normal Neck Exam: Positive: Supple; Negative: JVD, thyromegaly Chest Exam: Positive: Clear to auscultation, Normal air movement Heart Exam: Positive: Rate Normal, Regular Rhythm, Normal S1, Normal S2; Negative: Murmurs, Rubs Abdomen Exam: Positive: Normal bowel sounds, Soft; Negative: Tenderness, Hepatospenomegaly Extremity Exam: Positive: Normal pulses; Negative: Clubbing, Cyanosis, Edema Skin Exam: Positive: Nl turgor and temperature; Negative: Breakdown, Lesion Neuro Exam: Positive: Normal Gait, Normal Speech, Cranial Nerves 3-12 NL, Reflexes 2+ Psych Exam: Positive: Mental status NL, Mood NL, Oriented x 3 Vital Signs Vital Signs Date Time Temp Pulse Resp B/P (MAP) Pulse Ox O2 Delivery O2 Flow Rate FiO2 02/06/21 16:57 97.7 101 16 131/85 (100) Room Air 02/06/21 14:00 95 Laboratory Data Labs 24H Laboratory Tests 2 02/06/21 14:15: Coronavirus (COVID-19)(PCR) NEGATIVE, Influenza Type A (RT-PCR) NEGATIVE, Influenza Type B (RT-PCR) NEGATIVE, Respiratory Syncytial Virus (PCR) NEGATIVE Assessment/Plan 20 yo W with a history of depression who is [facility] for depression with suicidal ideation i/s/o relationship stressors. She otherwise has no chronic medical problems and her exam and investigations did not reveal an active medical problem. Medicine will sign off a this time. Please reconsult for medical concerns. Of note, her TSH was borderline low, will check freeT4. Plan: Depression with suicidal ideation: -Plan per primary psych team. Plan / VTE VTE Prophylaxis Ordered?: No VTE Exclusion Mechanical Proph: Low Risk for VTE VTE Exclusion Pharmacological: At Low Risk for VTE PINO ABDI MD Feb 07, 2021 11:04
[2021-02-07] MEDS: traZODone 50 MG TAB PO PRN (20:01)
[2021-02-07] MEDS: PRAZOSIN 1 MG CAP PO SCH (20:02)
[2021-02-08 06:25] VITALS: BP 117/70
[2021-02-08] MEDS: FLUoxetine 10 MG CAP PO SCH (08:06)
[2021-02-08] MEDS: hydrOXYzine 50 MG TAB PO PRN ×2 (12:23→21:50)
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
[2021-02-08 16:05] VITALS: BP 106/72
[2021-02-08] MEDS: PRAZOSIN 1 MG CAP PO SCH (20:53)
[2021-02-08] MEDS: traZODone 50 MG TAB PO PRN (20:53)
[2021-02-09 06:31] VITALS: BP 118/65
[2021-02-09] MEDS: hydrOXYzine 50 MG TAB PO PRN (06:38)
[2021-02-09] MEDS: FLUoxetine 10 MG CAP PO SCH (08:11)
[2021-02-09] MEDS ORDERED: FLUO10CA16 PO (10:31)
[2021-02-09] MEDS ORDERED: PRAZ2CAP PO (10:31)
[2021-02-09] MEDS ORDERED: TRAZ-252 PO (10:31)
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
[2021-02-09 19:09] VITALS: BP 126/61
[2021-02-09 21:35] VITALS: BP 126/61
[2021-02-09] MEDS: PRAZOSIN 1 MG CAP PO SCH (21:35)
[2021-02-09] MEDS: traZODone 50 MG TAB PO PRN (21:35)
[2021-02-10 06:29] VITALS: BP 129/79
[2021-02-10] MEDS: hydrOXYzine 50 MG TAB PO PRN (06:31)
[2021-02-10] MEDS: FLUoxetine 10 MG CAP PO SCH (08:03)
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
== END 2021-02-10 12:23 | disposition home or self-care (01) | DRG 751 ==
LOC: M ED 09:18 → M ED INP 13:27 → M PSY 16:51
PROVIDERS: ADMIT Student in an Organized Health Care Education/Training Program; ATTEND Psychiatry & Neurology Psychiatry
DX: F33.1 Major depressive disorder, recurrent, moderate (principal); F41.9 Anxiety disorder, unspecified; F43.9 Reaction to severe stress, unspecified; Z63.0 Problems in relationship with spouse or partner; Z20.822 Contact with and (suspected) exposure to COVID-19; R45.851 Suicidal ideations; Z79.899 Other long term (current) drug therapy; Z88.0 Allergy status to penicillin